=== PATIENT | female | born 1970 | race Caucasian/White ===

== ENCOUNTER 2024-12-08 11:01 | Emergency (ER) | payer BC, SELFPAY ==
[2024-12-08 11:02] VITALS: BP 133/91; PULSE 77; RESP 17; TEMP 36.7; O2SAT 97; BMI 44.5
--- NOTE | 2024-12-08 11:44 | EDS_ITS ---
HPI History of Present Illness Chief Complaint: Other, Pain/Inj Informant: patient Onset/Context/Timing Onset: Weeks (2) Context: Gradual Onset Timing: Continuous Quality: Tightness Location: Throat Worsened by: Nothing Relieved by: Nothing Narrative Narrative: Patient presents with upper respiratory congestion and possible cellulitis on her right breast. Patient states this has been getting worse over the past 2 weeks. [place] Patient states that she came to [place] approximately 2 weeks ago and had a rheumatoid arthritis flareup as well as a fibromyalgia flareup at that time. Patient states that those symptoms have improved. Patient states that her son has had a viral upper respiratory infection recently. Patient states she has had some upper respiratory congestion and cough. Patient states she is easily susceptible to pneumonia. Patient denies any fevers or chills. Patient states she noted some redness over the medial aspect of her right breast. Patient states this has gotten worse today. Patient states that starting yesterday is some mild redness. Patient admits to a mild cough. Patient denies any nausea or vomiting. PFSH [facility] Medical History (Updated 12/08/24 @ 11:[address] Luis Vega DO) Fibromyalgia Rheumatoid arthritis Home Medications ?Medication ?Instructions ?Recorded ?Last Taken ?Type amoxicillin 875 mg-potassium 875 mg PO Q12H #20 TABLET S 12/08/24 Unknown Rx clavulanate 125 mg tablet etanercept 50 mg/mL (1 mL) 50 mg subcut QWEEK RA 12/0812/01/24 History subcutaneous syringe (Enbrel) Allergy/AdvReac Type Severity Reaction Status Date / Time avocado ([place]) Allergy Mild Hives Verified 12/08/24 11:08 cantaloupe Allergy Mild Hives Verified 12/08/24 11:08 walnut Allergy Mild Hives Verified 12/08/24 11:08 gabapentin AdvReac Severe Other Verified 12/08/24 11:08 Surgical History (Updated 12/08/24 @ 11:[address] Lius Vega DO) H/O hysterectomy with oophorectomy Hx of cholecystectomy Hx of appendectomy Social History (Updated 12/08/24 @ 11:[address] Luis Vega DO) Smoking Status: Current every day smoker substance use type: marijuana ROS ROS ED Constitutional Constitutional ED: Denies chills or fever(s) Eyes Eyes: Denies blurry vision or change in vision ENT ENT ED: Reports rhinorrhea and sore throat Cardiovascular Cardiovascular: Denies chest pain or palpitations Respiratory/Chest Respiratory/Chest: Reports cough; Denies dyspnea Gastrointestinal Gastrointestinal: Denies nausea or vomiting Genitourinary Genitourinary ED: Denies dysuria or hematuria Musculoskeletal Musculoskeletal: Reports neck pain; Denies back pain Integumentary Reports rash; Denies abscess Neurologic Neurologic: Denies headache(s) or weakness Allergic/Immunologic Allergic/Immunologic ED: Denies mouth swelling or urticaria EXAM Physical Exam Const Vital Signs: 12/08/24 11:02 12/08/24 11:24 Temperature 98.1 F Temperature Source Oral Pulse Rate 77 Respiratory Rate 17 Respiratory Effort Normal Non-Labored Respiratory Pattern Normal Blood Pressure 133/91 H Blood Pressure Mean 105 Pulse Ox 97 Oxygen Delivery Method Room Air Positive well nourished and well developed Constitutional Narrative: BMI is 44.5. General Appearance ED: well developed and NAD HEENT Reports moist mucous membranes HEENT Narrative: Oropharynx shows some mild erythema and postnasal drainage. There are no exudates noted. Neck no lymphadenopathy, supple and no JVD Resp normal respiratory effort and clear to auscultation bilaterally Cardio regular rate and regular rhythm GI non-tender and non-distended Palpation: soft Neuro oriented x3, CN's II-XII intact bilaterally and no sensory deficits noted Sensorium / Orientation: alert Motor Exam: strength 5/5 throughout Psych mental status grossly normal Skin Skin Narrative: There is some erythema and warmth over the medial aspect of the right breast. There is no fluctuance. There is no induration. There is no discharge or drainage. MDM MDM MDM Narrative Medical decision making narrative: Patient was given a dose of Augmentin here. Patient was advised that the Augmentin would cover for the cellulitis of her right breast as well as any possible bacterial pneumonia or bacterial upper respiratory infection. Therefore, I do not feel patient needs a chest x-ray since it would not change any treatment. Patient is agreeable with this. Patient was given a prescription for Augmentin. Patient was instructed to continue using [id number] decongestants and cough medications as needed. Patient was instructed to follow-up with her primary care physician in 7 to 10 days. Patient was instructed return if worse in any way. Patient understood and was agreeable with the plan. All questions were answered. Discharge Plan Triage Chief Complaint: Other, Pain/Inj ED Provider: Luis Vega Dx/Rx/DC Orders Clinical Impression: Cellulitis of right breast, Tobacco use Instructions: ED Cellulitis Prescriptions: New amoxicillin-pot clavulanate 875-125 mg tablet 875 mg PO Q12H Qty: 20 0RF No Action Enbrel 50 mg/mL (1 mL) syringe 50 mg subcut QWEEK Patient Comments: Takes on Primary Care Provider: Luis E Rapp,Out of Referrals: Luis E Rapp,Out of [Primary Care Provider] - 1-2 Weeks Print Language: [place] Disposition Disposition: Home, Self Care
== END 2024-12-08 12:00 | disposition home or self-care (01) ==
PROVIDERS: Emergency Provider Emergency Medicine; Visit Provider Emergency Medicine
DX: N61.0 Mastitis without abscess (principal); Z90.710 Acquired absence of both cervix and uterus; Z90.49 Acquired absence of other specified parts of digestive tract; F17.200 Nicotine dependence, unspecified, uncomplicated
CPT/HCPCS: 99282